=== PATIENT | female | born 1970 | race Caucasian/White ===

== ENCOUNTER 2017-02-18 12:47 | Emergency (ER) | payer OTHER ==
[~2017-02-18] VITALS: Ht 172.7 cm; Wt 77.1 kg
[~2017-02-18 12:47] MED LIST: ALKA-SELTZER G1 EACH PO; BENTYL10 MG PO; ERY-TAB500 MG PO; FLONASE 0.05%50 MCG NASAL; HYDROCODONE-AP1 EAC6 PO; IBUPROFEN 600600 M1 PO; NOHOMEMEDICATIONS; NORCO 5-325 TA1 EACH PO; NYQUIL D COLD295 ML PO; ONDANSETRON HCL4 M2 PO; TYLENOL EX-STR500 M1 PO; ZOFRAN ODT4 MG PO; ZPAK PO
[2017-02-18] MEDS ORDERED: PREDNISONE 20 M20 MG PO ×2 (14:40→14:47)
[2017-02-18] MEDS ORDERED: PROMETHAZINE D480 ML GT ×2 (14:40→14:47)
[2017-02-18] MEDS ORDERED: VENTOLIN HFA 1818 GM INH (14:45)
[2017-02-18 15:02] VITALS: BP 138/93
== END 2017-02-18 15:04 | disposition home or self-care (01) ==
LOC: ER 12:47
DX: J20.8 Acute bronchitis due to other specified organisms (principal); F17.210 Nicotine dependence, cigarettes, uncomplicated; Z88.8 Allergy status to other drugs, medicaments and biological substances